=== PATIENT | male | born 1985 | race Caucasian/White ===

== ENCOUNTER 2018-01-28 11:39 | Emergency (ER) | payer BC ==
--- OUTSIDE RECORDS SUMMARY | 2018-01-28 12:43 | XMS REPORT | Continuity of Care Document ---
:1985 External Reference #:[id number] Author Name Bulmaro Franz M.D. Address [address] [facility] [place] [address] Care Team Providers Name Role Phone Frankie Linares M.D. Primary Care Physician Unavailable Payers Type Date Identification Numbers Payment Provider Subscriber Policy Number: [id number] [employer] Titi Sherman PayID: [id number] [address] [address] [place] [address] Advance Directives Description No Information Available Problems Date Description Provider Status Onset: 01/20/2018 Vitreous degeneration Bulmaro Franz M.D. Active Onset: 01/27/2018 Disorder of vitreous body Bulmaro Franz M.D. 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 ETOH Use Denies alcohol use Tobacco Use Start: Unknown Patient has never smoked Recreational Drug Use Denies Drug Use Smoking Status Reviewed: 01/27/18 Patient has never smoked Allergies, Adverse Reactions, Alerts Date Description Reaction Status Severity Comments 01/20/2018 Penicillin Active 01/20/2018 ALL Cillin's Active Medications Description No Active Medications Immunizations Description No Information Available Vital Signs Description No Information Available Results Description No Information Available Procedures Date Code Description Status 01/20/2018 61045 New Patient Comprehensive Exam Completed Encounters Description No Information Available Plan of Treatment 01/27/2018 - Bulmaro Franz M.D.H43.89 Other disorders of vitreous bodyComments:Smoking can increase the risk of developing or worsening any eye related disease, as well as affect your overall health. If you are a smoker, we strongly recommend that you quit.If you are not a smoker, we strongly recommend that you do not start. YOU HAVE SIGNS OF INFLAMMATION IN THE BACK OF THE LEFT EYE. I WILL REFER YOU TO A UVEITIS SPECIALIST TO LOOK INTO THIS
--- OUTSIDE RECORDS SUMMARY | 2018-01-28 12:43 | XMS REPORT | Continuity of Care Document ---
:1985 External Reference #:[id number] Author Name Bulmaro Franz M.D. Address [address] [facility] [place] [address] Care Team Providers Name Role Phone Frankie Linares M.D. Primary Care Physician Unavailable Payers Type Date Identification Numbers Payment Provider Subscriber Policy Number: [id number] [employer] Titi Sherman PayID: [id number] [address] [address] [place] [address] Advance Directives Description No Information Available Problems Date Description Provider Status Onset: 01/20/2018 Vitreous degeneration Bulmaro Franz M.D. 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 ETOH Use Denies alcohol use Tobacco Use Start: Unknown Patient has never smoked Recreational Drug Use Denies Drug Use Smoking Status Reviewed: 01/20/18 Patient has never smoked Allergies, Adverse Reactions, Alerts Date Description Reaction Status Severity Comments 01/20/2018 Penicillin Active 01/20/2018 ALL Cillin's Active Medications Description No Active Medications Immunizations Description No Information Available Vital Signs Description No Information Available Results Description No Information Available Procedures Description No Information Available Encounters Description No Information Available Plan of Treatment 01/20/2018 - Bulmaro Franz M.D.H43.812 Vitreous degeneration, left eyeComments:Smoking can increase the risk of developing or worsening any eye related disease, as well as affect your overall health. If you are a smoker, we strongly recommend that you quit.If you are not a smoker, we strongly recommend that you do not start. You have a Posterior Vitreous Detachment in your left eye. If you have any changes in your floaters or flashing lights, please contact this office.Follow up:1 WEEK F/U PVD CHECK You can expect to have your eyes dilated at your next visit. If Dr. Franz orders any additional testing, it may require extra time. We recommend that you bring sunglasses, as dilation drops often make you light sensitive until they wear off. We always recommend you bring someone to drive you home if you are uncomfortable driving with your eyes dilated. If you have any questions before your next visit, feel free to call our office at .
[2018-01-28 13:10] VITALS: BP 120/78
--- NOTE | 2018-01-28 13:35 | UC ---
General HPI - HPI Summary HPI Summary: ABOUT A WEEK AND A HALF AGO PATIENT DEVELOPED BLURRY VISION OUT OF HIS LEFT EYE. HE SAW DR. JAMES (OPHTHALMOLOGY) AND WAS DIAGNOSED WITH VITRITIS. HE HAS BEEN REFERRED TO AN EMERGENCY DEPARTMENT PHYSICIAN IN [place] FOR FOLLOW-UP HOWEVER AT THAT SAME TIME HE ALSO DEVELOPED RIGHT-SIDED NECK PAIN AND LEFT-SIDED HEADACHE AND PRESSURE. THESE SX HAVE WORSENED AND 2 DAYS AGO HE DEVELOPED LOW BACK PAIN AND LEFT HIP PAIN. HE IS FEELING RUN DOWN AND ALSO HAS BEEN HAVING HOT FLASHES THROUGHOUT THE DAY AND AT NIGHT. HE DENIES ANY FEVER MEASURING HIS TEMPERATURE AT 99.2 MAX. PATIENT IS AN OTHERWISE HEALTHY PERSON WITH NO CHRONIC MEDICAL PROBLEMS. ADMITS THAT HE DOES SPEND A LOT OF TIME OUTSIDE AND IT IS POSSIBLE HE HAS HAD TICK BITES THAT HE IS UNAWARE OF. - History of Current Complaint Chief Complaint: UCGeneralIllness Stated Complaint: PRESSURE L SIDE OF HEAD Time Seen by Provider: 01/28/18 13:19 Hx Obtained From: Patient Onset/Duration: Gradual Onset, Lasting Days, Still Present Timing: Constant Onset Severity: Moderate Current Severity: Moderate Pain Intensity: 4 - Allergy/Home Medications Allergies/Adverse Reactions: Allergies Allergy/AdvReac Type Severity Reaction Status Date / Time Penicillins Allergy Anaphylatic Verified 01/28/18 13:01 Shock Home Medications: Home Medications NK [No Home Medications Reported] 01/28/18 [History Confirmed 01/28/18] PMH/Surg Hx/FS Hx/Imm Hx Previously Healthy: Yes - Surgical History Surgical History: Yes Surgery Procedure, Year, and Place: left knee surgery as a child - Family History Known Family History: Negative: Hypertension Family History: NO FAM HX OF RHEUMATOLOGIC/AUTOIMMUNE DISEASE - Social History Alcohol Use: Occasionally Alcohol Amount: 3 week Substance Use Type: None Smoking Status (MU): Never Smoked Tobacco Review of Systems Constitutional: Fatigue Eyes: Blurred Vision - LEFT EYE Respiratory: Negative Cardiovascular: Negative Gastrointestinal: Negative Musculoskeletal: Arthralgia Neurological: Headache All Other Systems Reviewed And Are Negative: Yes Physical Exam Triage Information Reviewed: Yes Appearance: Well-Appearing, No Pain Distress, Well-Nourished Vital Signs: Initial Vital Signs Temp 99.2 F 01/28/18 13:01 Pulse 74 01/28/18 13:01 Resp 16 01/28/18 13:01 BP 120/78 01/28/18 13:01 Pulse Ox 99 01/28/18 13:01 Vital Signs Reviewed: Yes Eyes: Positive: Conjunctiva Clear, Other: - PERRLA, EOMI ENT: Positive: Hearing grossly normal, Pharynx normal, TMs normal Neck: Positive: Supple, Nontender, No Lymphadenopathy Respiratory Exam: Normal Cardiovascular Exam: Normal Abdomen Description: Positive: Soft Musculoskeletal: Positive: ROM Intact, No Edema Neurological: Positive: Alert, Other: - NO SIGNS OF MENINGISMUS Psychological: Positive: Age Appropriate Behavior Skin: Negative: rashes Diagnostics - Radiology CT HEAD W/O CONTRAST Xray Interpretation: No Acute Changes Radiology Interpretation Completed By: Radiologist Course/Dx - Differential Dx - Multi-Symptom Provider Diagnoses: 1. BLURRY VISION. 2. POLYARTHRALGIA Discharge - Sign-Out/Discharge Documenting (check all that apply): Patient Departure All imaging exams completed and their final reports reviewed: Yes - Discharge Plan Condition: Stable Disposition: HOME Patient Education Materials: Blurred Vision (ED), Arthralgia (ED) Referrals: [facility] [Provider Group] - 1 Week Additional Instructions: UNCLEAR CAUSE OF YOUR SYMPTOMS TODAY. HEAD CT TODAY UNREMARKABLE. LABS DRAWN INCLUDE BLOOD COUNT, METABOLIC PANEL, THYROID AND LYME SEROLOGY. IF ALL NEGATIVE WOULD CONSIDER FURTHER WORKUP FOR RHEUMATOLOGIC/AUTOIMMUNE/CONNECTIVE TISSUE DISORDER. KEEP YOUR OPHTHALMOLOGY APPOINTMENT IN [place] NEXT WEEK. FOLLOW-UP WITH YOU PCP AT [facility]. GO TO THE ED WITHOUT FAIL IF YOU DEVELOP WORSENING PAIN, WORSENING VISUAL DISTURBANCE, FEVER, NAUSEA OR ANY OTHER CONCERNING SYMPTOMS. - Billing Disposition and Condition Condition: STABLE Disposition: Home
--- NOTE | 2018-01-28 14:22 | RAD ---
Indication: Blurred vision LEFT eye. Headache. No known injury. Comparison: No relevant prior exams available on the [facility] for comparison. Technique: Noncontrast CT vertex of skull through foramen magnum. Report: The sulci, ventricles, and basal cisterns are normal for age. May matter white matter differentiation is preserved without evidence for edema. No intra or extra axial hemorrhage, mass, or fluid collection detected. Unremarkable visualized orbital contents. Unremarkable calvarium and skull base. Unremarkable scalp. The visualized paranasal sinuses and mastoid air spaces are clear. IMPRESSION: #. Negative unenhanced head CT.
[2018-01-28 18:46] LABS: ABS Basophils 0 10^3/ul (0-0.2); ABS Eosinophils 0.1 10^3/ul (0-0.6); ABS Lymphocytes 1.9 10^3/ul (1.0-4.8); ABS Monocytes 0.3 10^3/ul (0-0.8); ABS Nucleated RBC 0 10^3/ul; Eosinophil % 1.5 % (0-6); Hematocrit 45 % (42-52); Hemoglobin 15.9 g/dl (14.0-18.0); Mean Corpuscular HGB Conc 35 g/dl (31-36); Mean Corpuscular Hemoglobin 31 pg (27-31); Mean Corpuscular Volume 88 fL (80-94); Mean Platelet Volume 11.1 um3 (7.4-10.4); Nucleated Red Blood Cells % 0.2; Platelet Count 172 10^3/ul (150-450); Red Blood Count 5.07 10^6/ul (4.00-5.40); Red Cell Distribution Width 12 % (10.5-15); White Blood Count 5.3 10^3/ul (3.5-10.8)
== END 2018-01-28 14:45 | disposition home or self-care (01) ==
LOC: UCEAST 11:39
DX: H53.8 Other visual disturbances (principal); R51 Headache; M25.552 Pain in left hip; M54.5 Low back pain; R53.83 Other fatigue; Z88.0 Allergy status to penicillin
CPT/HCPCS: 36415; 70450; 80053; 84443; 85025; 86618; 99201; G0463